=== PATIENT | male | born 1955 | race Caucasian/White ===

== ENCOUNTER 2018-08-19 09:46 | Inpatient (IN) ==
[2018-08-19] MEDS ORDERED: ONDANSETRON 4 MG/2 ML VIAL IV PRN (12:34)
[2018-08-19] MEDS ORDERED: ACETAMINOPHEN 325 MG TABLET PO PRN (12:34)
[2018-08-19] MEDS ORDERED: ALBUTEROL/IPRATROPIUM 3 ML NEB RESP TX STA (12:41)
[2018-08-19] MEDS ORDERED: ALBUTEROL/IPRATROPIUM 3 ML NEB RESP TX ONE ×2 (12:42→14:33)
[2018-08-19] MEDS ORDERED: ALBUTEROL/IPRATROPIUM 3 ML NEB RESP TX SCH (13:00)
[2018-08-19 13:14] LABS: Basophils # 0.1 10*3/uL (0.0-0.2); Basophils % 0.5 % (0.0-0.8); Eosinophils % 0.2 % (0.00-10.9); Hematocrit 53.3 VOL% (42.0-52.0); Immature Granulocytes % 1.3 %; Immature Granulocytes Absolute 0.17 #; Lymphocytes # 1.8 10*3/uL (1.4-4.0); Lymphocytes % 14.1 % (21.2-54.2); Mean Corpuscular HGB Conc 35.6 GM/DL (32-36); Mean Corpuscular Hemoglobin 31 PG (27-34); Mean Corpuscular Volume 87.2 FL (87-102); Mean Platelet Volume 9.3 FL (9.6-12.0); Monocytes # 1.3 10*3/uL (0.11-0.8); Monocytes % 9.7 % (1.7-12.7); Neutrophils # 9.7 10*3/uL (1.4-7.4); Neutrophils % 74.2 % (38.7-73.9); Platelet Count 246 T/CUMM (130-400); Red Blood Count 6.11 MC/CUMM (3.8-5.5); Red Cell Distribution Width 13.4 % (9.3-17.3)
[2018-08-19 13:33] LABS: Risk Ratio 4.29; VLDL CHOLESTEROL 35.8 MG/DL
[2018-08-19] MEDS: guaiFENesin/DM ER 600-30 MG TABLET PO SCH ×2 (13:33→20:54)
[2018-08-19 13:36] LABS: Alanine Aminotransferase 27 U/L (16-61); Albumin 3.5 G/DL (3.4-5.0); Alkaline Phosphatase 51 U/L (45-117); Aspartate Amino Transferase 19 U/L (0-37); Blood Urea Nitrogen 24 MG/DL (7-18); Calcium 8.6 MG/DL (8.5-10.1); Glucose 97 MG/DL (74-106); Osmolality,Calculated 273.1 MOS/KG (273-304); Potassium 2.7 MMOL/L (3.5-5.1); Sodium 135 MMOL/L (136-145); Total Protein 7.5 G/DL (6.4-8.3); Troponin I < 0.015 NG/ML (0.00-0.045)
[2018-08-19 13:54] LABS: ABG Base Excess 4.8 MMOL/L (-2.5-2.5); ABG HCO3 28.5 MMOL/L (20-26); ABG Oxygen Saturation 93.1 % (95-100); ABG PCO2 36.9 MM HG (35-48); ABG PH 7.488 (7.35-7.45); ABG PO2 68.2 MM HG (80-95); ABG TCO2 22.1 MMOL/L (23-27)
[2018-08-19] MEDS ORDERED: methylPREDNISolone SOD SUC 40 MG/1 ML VIAL IV ONE (14:30)
[2018-08-19] MEDS ORDERED: ALBUTEROL/IPRATROPIUM 3 ML NEB RESP TX PRN (14:38)
[2018-08-19] MEDS: ALBUTEROL/IPRATROPIUM 3 ML NEB RESP TX SCH ×3 (14:55→23:46)
[2018-08-19] MEDS: POTASSIUM CHLORIDE 20 MEQ TABLET PO PRN ×4 (15:06→23:14)
[2018-08-19] MEDS: guaiFENesin/CODEINE 5 ML LIQUID PO PRN ×3 (15:07→23:18)
[2018-08-19] MEDS: SODIUM CHLORIDE 0.9% 1,000 ML IV SCH (15:08)
[2018-08-19] MEDS: PIPERACILLIN/TAZOBACTAM 3,375 MG in SODIUM CHLORIDE 0.9% 100 ML IV SCH ×2 (16:16→23:20)
[2018-08-19] MEDS: SIMVASTATIN 20 MG TABLET PO SCH (20:54)
[2018-08-19] MEDS ORDERED: APIXABAN 5 MG TABLET PO SCH (21:00)
[2018-08-19] MEDS: methylPREDNISolone SOD SUC 40 MG/1 ML VIAL IV SCH (23:18)
[2018-08-20] MEDS: ALBUTEROL/IPRATROPIUM 3 ML NEB RESP TX SCH ×6 (04:10→23:07)
[2018-08-20] MEDS: methylPREDNISolone SOD SUC 40 MG/1 ML VIAL IV SCH ×3 (06:48→23:26)
[2018-08-20] MEDS: PIPERACILLIN/TAZOBACTAM 3,375 MG in SODIUM CHLORIDE 0.9% 100 ML IV SCH ×3 (06:49→23:27)
[2018-08-20] MEDS: guaiFENesin/CODEINE 5 ML LIQUID PO PRN ×3 (06:54→21:48)
[2018-08-20 07:13] LABS: Basophils % 0.2 % (0.0-0.8); Hematocrit 51.2 VOL% (42.0-52.0); Hemoglobin 18.2 GM/DL (14.0-18.0); Immature Granulocytes % 1.1 %; Immature Granulocytes Absolute 0.11 #; Lymphocytes # 0.9 10*3/uL (1.4-4.0); Lymphocytes % 8.5 % (21.2-54.2); Mean Corpuscular HGB Conc 35.5 GM/DL (32-36); Mean Corpuscular Hemoglobin 31 PG (27-34); Mean Corpuscular Volume 87.7 FL (87-102); Mean Platelet Volume 9.4 FL (9.6-12.0); Monocytes # 0.2 10*3/uL (0.11-0.8); Monocytes % 1.6 % (1.7-12.7); Neutrophils # 9.2 10*3/uL (1.4-7.4); Neutrophils % 88.6 % (38.7-73.9); Platelet Count 224 T/CUMM (130-400); Red Blood Count 5.84 MC/CUMM (3.8-5.5); Red Cell Distribution Width 13.2 % (9.3-17.3); White Blood Count 10.3 T/CUMM (4-12)
[2018-08-20 07:26] LABS: Calcium 8.5 MG/DL (8.5-10.1); Osmolality,Calculated 280.8 MOS/KG (273-304); Potassium 3.2 MMOL/L (3.5-5.1)
[2018-08-20] MEDS: ASPIRIN EC 81 MG TABLET PO SCH (08:39)
[2018-08-20] MEDS: guaiFENesin/DM ER 600-30 MG TABLET PO SCH (08:39)
[2018-08-20] MEDS: PANTOPRAZOLE 40 MG TABLET PO SCH (08:39)
[2018-08-20] MEDS ORDERED: MEPERIDINE 50 MG/1 ML VIAL IM ONE (09:13)
[2018-08-20] MEDS ORDERED: MIDAZOLAM 2 MG/2 ML VIAL IV ONE (09:13)
[2018-08-20] MEDS ORDERED: diphenhydrAMINE 50 MG/1 ML VIAL IM ONE (09:13)
[2018-08-20] MEDS ORDERED: BENZONATATE 100 MG CAPSULE PO ONE (09:15)
[2018-08-20 09:56] LABS: INR 1.1; PT Patient Result 11.7 SECS; Partial Thromboplastin Time 28.2 SECS (0-40)
[2018-08-20] MEDS ORDERED: LIDOCAINE 2% VISCOUS 100 ML BOTTLE SWISH/SPIT ONE (10:00)
[2018-08-20] MEDS ORDERED: LIDOCAINE 2% 20 ML VIAL RESP TX ONE (10:00)
[2018-08-20] MEDS ORDERED: LIDOCAINE 1% 20 ML VIAL MISC INJ ONE (10:00)
[2018-08-20] MEDS ORDERED: MIDAZOLAM 2 MG/2 ML VIAL ONE (11:50)
[2018-08-20] MEDS: LEVOFLOXACIN INJ 250 MG in PREMIX 1 EACH IV SCH (13:34)
[2018-08-20] MEDS: SODIUM CHLORIDE 0.9% 1,000 ML IV SCH ×3 (13:40→23:24)
[2018-08-20] MEDS: DORNASE ALFA 2.5 MG/2.5 ML VIAL RESP TX SCH (19:49)
[2018-08-20] MEDS: APIXABAN 5 MG TABLET PO SCH (21:47)
[2018-08-20] MEDS: SIMVASTATIN 20 MG TABLET PO SCH (21:47)
[2018-08-21] MEDS: ALBUTEROL/IPRATROPIUM 3 ML NEB RESP TX SCH ×6 (03:52→23:42)
[2018-08-21 05:34] LABS: Basophils % 0.2 % (0.0-0.8); Hematocrit 46.8 VOL% (42.0-52.0); Hemoglobin 16.3 GM/DL (14.0-18.0); Immature Granulocytes % 0.8 %; Immature Granulocytes Absolute 0.13 #; Lymphocytes # 0.8 10*3/uL (1.4-4.0); Lymphocytes % 4.9 % (21.2-54.2); Mean Corpuscular HGB Conc 34.8 GM/DL (32-36); Mean Corpuscular Hemoglobin 31 PG (27-34); Mean Corpuscular Volume 88.6 FL (87-102); Mean Platelet Volume 9.3 FL (9.6-12.0); Monocytes # 0.9 10*3/uL (0.11-0.8); Monocytes % 5.3 % (1.7-12.7); Neutrophils # 14.9 10*3/uL (1.4-7.4); Neutrophils % 88.8 % (38.7-73.9); Platelet Count 209 T/CUMM (130-400); Red Blood Count 5.28 MC/CUMM (3.8-5.5); Red Cell Distribution Width 13.2 % (9.3-17.3); White Blood Count 16.8 T/CUMM (4-12)
[2018-08-21 05:52] LABS: Calcium 8.1 MG/DL (8.5-10.1); Osmolality,Calculated 289.4 MOS/KG (273-304)
[2018-08-21 06:21] LABS: Band Neutrophils 1 % (0-10); Lymphocytes 6 % (20-55); Segmented Neutrophils 91 % (50-85)
[2018-08-21 06:22] LABS: Platelet Estimate Adequate; Total Cells Counted 100
[2018-08-21] MEDS: methylPREDNISolone SOD SUC 40 MG/1 ML VIAL IV SCH ×3 (06:32→22:32)
[2018-08-21] MEDS: PIPERACILLIN/TAZOBACTAM 3,375 MG in SODIUM CHLORIDE 0.9% 100 ML IV SCH ×2 (06:33→16:27)
[2018-08-21] MEDS: DORNASE ALFA 2.5 MG/2.5 ML VIAL RESP TX SCH ×2 (08:24→20:00)
[2018-08-21] MEDS: APIXABAN 5 MG TABLET PO SCH ×2 (08:49→21:06)
[2018-08-21] MEDS: ASPIRIN EC 81 MG TABLET PO SCH (08:49)
[2018-08-21] MEDS: PANTOPRAZOLE 40 MG TABLET PO SCH (08:49)
[2018-08-21] MEDS: LEVOFLOXACIN INJ 250 MG in PREMIX 1 EACH IV SCH (12:21)
[2018-08-21] MEDS: guaiFENesin/CODEINE 5 ML LIQUID PO PRN ×2 (15:43→21:10)
[2018-08-21] MEDS: CARVEDILOL 25 MG TABLET PO SCH (16:28)
[2018-08-21] MEDS: CEFEPIME 1,000 MG in SYRINGE 1 EACH IV SCH (18:31)
[2018-08-21] MEDS: POTASSIUM CHLORIDE 20 MEQ TABLET PO PRN ×3 (19:34→22:33)
[2018-08-21] MEDS: SIMVASTATIN 20 MG TABLET PO SCH (21:06)
[2018-08-22] MEDS: SODIUM CHLORIDE 0.9% 1,000 ML IV SCH (00:45)
[2018-08-22] MEDS: POTASSIUM CHLORIDE 20 MEQ TABLET PO PRN ×3 (00:48→14:30)
[2018-08-22] MEDS: ALBUTEROL/IPRATROPIUM 3 ML NEB RESP TX SCH ×6 (03:45→23:14)
[2018-08-22 04:59] LABS: Basophils % 0.1 % (0.0-0.8); Hematocrit 46.6 VOL% (42.0-52.0); Hemoglobin 15.8 GM/DL (14.0-18.0); Immature Granulocytes Absolute 0.17 #; Lymphocytes # 0.5 10*3/uL (1.4-4.0); Lymphocytes % 3.2 % (21.2-54.2); Mean Corpuscular HGB Conc 33.9 GM/DL (32-36); Mean Corpuscular Hemoglobin 30 PG (27-34); Mean Corpuscular Volume 89.8 FL (87-102); Mean Platelet Volume 9.4 FL (9.6-12.0); Monocytes # 0.6 10*3/uL (0.11-0.8); Monocytes % 3.5 % (1.7-12.7); Neutrophils # 15.1 10*3/uL (1.4-7.4); Neutrophils % 92.2 % (38.7-73.9); Platelet Count 202 T/CUMM (130-400); Red Blood Count 5.19 MC/CUMM (3.8-5.5); Red Cell Distribution Width 13.5 % (9.3-17.3); White Blood Count 16.4 T/CUMM (4-12)
[2018-08-22 05:25] LABS: Osmolality,Calculated 289.4 MOS/KG (273-304); Potassium 3.6 MMOL/L (3.5-5.1)
[2018-08-22] MEDS: methylPREDNISolone SOD SUC 40 MG/1 ML VIAL IV SCH ×3 (06:29→23:58)
[2018-08-22 06:51] LABS: Lymphocytes 4 % (20-55); Segmented Neutrophils 93 % (50-85)
[2018-08-22 06:52] LABS: Platelet Estimate Normal; Reactive Lymphocytes 2+
[2018-08-22 06:53] LABS: Total Cells Counted 100
[2018-08-22] MEDS: DORNASE ALFA 2.5 MG/2.5 ML VIAL RESP TX SCH ×2 (07:47→19:23)
[2018-08-22] MEDS: APIXABAN 5 MG TABLET PO SCH ×2 (09:10→20:51)
[2018-08-22] MEDS: TAMSULOSIN 0.4 MG CAPSULE PO SCH (09:10)
[2018-08-22] MEDS: ASPIRIN EC 81 MG TABLET PO SCH (09:11)
[2018-08-22] MEDS: PANTOPRAZOLE 40 MG TABLET PO SCH (09:11)
[2018-08-22] MEDS: CARVEDILOL 25 MG TABLET PO SCH ×2 (09:11→17:16)
[2018-08-22] MEDS: LEVOFLOXACIN INJ 250 MG in PREMIX 1 EACH IV SCH (11:44)
[2018-08-22] MEDS: guaiFENesin/CODEINE 5 ML LIQUID PO PRN ×2 (14:29→20:52)
[2018-08-22] MEDS: CEFEPIME 1,000 MG in SYRINGE 1 EACH IV SCH (17:32)
[2018-08-22] MEDS: SIMVASTATIN 20 MG TABLET PO SCH (20:51)
[2018-08-23] MEDS: ALBUTEROL/IPRATROPIUM 3 ML NEB RESP TX SCH ×6 (02:08→22:44)
[2018-08-23] MEDS: SODIUM CHLORIDE 0.9% 1,000 ML IV SCH ×3 (05:16→22:41)
[2018-08-23 06:16] LABS: Basophils % 0.1 % (0.0-0.8); Hematocrit 45.2 VOL% (42.0-52.0); Hemoglobin 15.4 GM/DL (14.0-18.0); Immature Granulocytes % 0.8 %; Immature Granulocytes Absolute 0.11 #; Lymphocytes # 0.5 10*3/uL (1.4-4.0); Lymphocytes % 3.6 % (21.2-54.2); Mean Corpuscular HGB Conc 34.1 GM/DL (32-36); Mean Corpuscular Hemoglobin 31 PG (27-34); Mean Corpuscular Volume 90.8 FL (87-102); Mean Platelet Volume 9.4 FL (9.6-12.0); Monocytes # 0.4 10*3/uL (0.11-0.8); Monocytes % 3.3 % (1.7-12.7); Neutrophils # 12.4 10*3/uL (1.4-7.4); Neutrophils % 92.2 % (38.7-73.9); Platelet Count 180 T/CUMM (130-400); Red Blood Count 4.98 MC/CUMM (3.8-5.5); Red Cell Distribution Width 13.7 % (9.3-17.3); White Blood Count 13.4 T/CUMM (4-12)
[2018-08-23 06:34] LABS: Calcium 7.8 MG/DL (8.5-10.1); Osmolality,Calculated 286.3 MOS/KG (273-304); Potassium 3.5 MMOL/L (3.5-5.1)
[2018-08-23] MEDS: methylPREDNISolone SOD SUC 40 MG/1 ML VIAL IV SCH ×3 (06:44→22:29)
[2018-08-23 06:59] LABS: Band Neutrophils 1 % (0-10); Lymphocytes 6 % (20-55); Platelet Estimate Normal; Segmented Neutrophils 92 % (50-85); Total Cells Counted 100
[2018-08-23 07:00] LABS: Anisocytosis Slight
[2018-08-23] MEDS: DORNASE ALFA 2.5 MG/2.5 ML VIAL RESP TX SCH ×2 (07:46→19:32)
[2018-08-23] MEDS: CARVEDILOL 25 MG TABLET PO SCH ×2 (09:03→17:20)
[2018-08-23] MEDS: ASPIRIN EC 81 MG TABLET PO SCH ×2 (09:03→17:21)
[2018-08-23] MEDS: PANTOPRAZOLE 40 MG TABLET PO SCH (09:04)
[2018-08-23] MEDS: APIXABAN 5 MG TABLET PO SCH ×2 (09:04→22:09)
[2018-08-23] MEDS: CEFEPIME 1,000 MG in SYRINGE 1 EACH IV SCH ×2 (09:09→16:31)
[2018-08-23] MEDS: LEVOFLOXACIN INJ 500 MG in PREMIX 1 EACH IV SCH (09:12)
[2018-08-23] MEDS: guaiFENesin/CODEINE 5 ML LIQUID PO PRN ×3 (11:26→22:07)
[2018-08-23] MEDS: ALBUTEROL 2 MG TABLET PO SCH ×2 (17:19→22:08)
[2018-08-23] MEDS: SIMVASTATIN 20 MG TABLET PO SCH (22:09)
[2018-08-23] MEDS: POTASSIUM CHLORIDE 20 MEQ TABLET PO PRN (22:09)
[2018-08-24] MEDS: CEFEPIME 1,000 MG in SYRINGE 1 EACH IV SCH ×3 (01:19→17:22)
[2018-08-24] MEDS: POTASSIUM CHLORIDE 20 MEQ TABLET PO PRN (01:37)
[2018-08-24] MEDS: ALBUTEROL/IPRATROPIUM 3 ML NEB RESP TX SCH ×6 (03:32→23:47)
[2018-08-24 05:36] LABS: Calcium 7.9 MG/DL (8.5-10.1); Osmolality,Calculated 286.4 MOS/KG (273-304)
[2018-08-24 05:45] LABS: Basophils % 0.1 % (0.0-0.8); Hematocrit 48.2 VOL% (42.0-52.0); Hemoglobin 16.2 GM/DL (14.0-18.0); Immature Granulocytes % 1.3 %; Immature Granulocytes Absolute 0.15 #; Lymphocytes # 0.4 10*3/uL (1.4-4.0); Lymphocytes % 3.8 % (21.2-54.2); Mean Corpuscular HGB Conc 33.6 GM/DL (32-36); Mean Corpuscular Hemoglobin 31 PG (27-34); Mean Corpuscular Volume 93.1 FL (87-102); Mean Platelet Volume 9.9 FL (9.6-12.0); Monocytes # 0.3 10*3/uL (0.11-0.8); Monocytes % 2.6 % (1.7-12.7); Neutrophils # 10.4 10*3/uL (1.4-7.4); Neutrophils % 92.2 % (38.7-73.9); Platelet Count 162 T/CUMM (130-400); Red Blood Count 5.18 MC/CUMM (3.8-5.5); Red Cell Distribution Width 13.7 % (9.3-17.3); White Blood Count 11.3 T/CUMM (4-12)
[2018-08-24 06:05] LABS: Hypochromasia Slight; Lymphocytes 4 % (20-55); Platelet Estimate Adequate; Segmented Neutrophils 95 % (50-85); Total Cells Counted 100
[2018-08-24] MEDS: ALBUTEROL 2 MG TABLET PO SCH ×3 (06:36→21:09)
[2018-08-24] MEDS: DORNASE ALFA 2.5 MG/2.5 ML VIAL RESP TX SCH ×2 (07:20→20:03)
[2018-08-24] MEDS: ASPIRIN EC 81 MG TABLET PO SCH (09:58)
[2018-08-24] MEDS: PANTOPRAZOLE 40 MG TABLET PO SCH (09:58)
[2018-08-24] MEDS: APIXABAN 5 MG TABLET PO SCH ×2 (09:58→21:10)
[2018-08-24] MEDS: CARVEDILOL 25 MG TABLET PO SCH ×2 (09:58→17:12)
[2018-08-24] MEDS: LEVOFLOXACIN INJ 500 MG in PREMIX 1 EACH IV SCH (10:01)
[2018-08-24] MEDS ORDERED: EPINEPHrine 1 MG/ML VIAL SUBCUT ONE (10:28)
[2018-08-24] MEDS: SODIUM CHLORIDE 0.9% 1,000 ML IV SCH (12:41)
[2018-08-24] MEDS: methylPREDNISolone SOD SUC 40 MG/1 ML VIAL IV SCH (12:42)
[2018-08-24] MEDS: guaiFENesin/CODEINE 5 ML LIQUID PO PRN (14:22)
[2018-08-24] MEDS: SIMVASTATIN 20 MG TABLET PO SCH (21:10)
[2018-08-25] MEDS: methylPREDNISolone SOD SUC 40 MG/1 ML VIAL IV SCH ×4 (00:02→22:11)
[2018-08-25] MEDS: SODIUM CHLORIDE 0.9% 1,000 ML IV SCH ×4 (00:06→22:10)
[2018-08-25] MEDS: CEFEPIME 1,000 MG in SYRINGE 1 EACH IV SCH ×3 (00:09→17:49)
[2018-08-25] MEDS: MORPHINE 4 MG/1 ML VIAL IV PRN ×2 (02:09→05:48)
[2018-08-25] MEDS: ALBUTEROL/IPRATROPIUM 3 ML NEB RESP TX SCH ×5 (03:20→19:53)
[2018-08-25] MEDS: guaiFENesin/CODEINE 5 ML LIQUID PO PRN ×4 (03:41→17:54)
[2018-08-25 05:27] LABS: Basophils % 0.1 % (0.0-0.8); Hematocrit 45.4 VOL% (42.0-52.0); Hemoglobin 15.4 GM/DL (14.0-18.0); Immature Granulocytes % 0.9 %; Lymphocytes # 0.4 10*3/uL (1.4-4.0); Lymphocytes % 3.3 % (21.2-54.2); Mean Corpuscular HGB Conc 33.9 GM/DL (32-36); Mean Corpuscular Hemoglobin 31 PG (27-34); Mean Corpuscular Volume 92.1 FL (87-102); Mean Platelet Volume 9.2 FL (9.6-12.0); Monocytes # 0.4 10*3/uL (0.11-0.8); Monocytes % 3.5 % (1.7-12.7); Neutrophils # 10.8 10*3/uL (1.4-7.4); Neutrophils % 92.2 % (38.7-73.9); Platelet Count 151 T/CUMM (130-400); Red Blood Count 4.93 MC/CUMM (3.8-5.5); Red Cell Distribution Width 13.7 % (9.3-17.3); White Blood Count 11.7 T/CUMM (4-12)
[2018-08-25] MEDS: ALBUTEROL 2 MG TABLET PO SCH ×3 (05:48→22:11)
[2018-08-25 06:00] LABS: Calcium 7.6 MG/DL (8.5-10.1); Osmolality,Calculated 293.8 MOS/KG (273-304); Potassium 3.7 MMOL/L (3.5-5.1)
[2018-08-25 06:07] LABS: Hypochromasia 1+; Lymphocytes 3 % (20-55); Platelet Estimate Adequate; Segmented Neutrophils 94 % (50-85); Total Cells Counted 100
[2018-08-25] MEDS: DORNASE ALFA 2.5 MG/2.5 ML VIAL RESP TX SCH ×2 (07:32→23:00)
[2018-08-25] MEDS: PANTOPRAZOLE 40 MG TABLET PO SCH (10:19)
[2018-08-25] MEDS: LEVOFLOXACIN INJ 500 MG in PREMIX 1 EACH IV SCH (10:19)
[2018-08-25] MEDS: ASPIRIN EC 81 MG TABLET PO SCH (10:20)
[2018-08-25] MEDS: APIXABAN 5 MG TABLET PO SCH ×2 (10:20→20:45)
[2018-08-25] MEDS: CARVEDILOL 25 MG TABLET PO SCH ×2 (10:20→17:48)
[2018-08-25] MEDS: POTASSIUM CHLORIDE 20 MEQ TABLET PO PRN (10:20)
[2018-08-25] MEDS: TAMSULOSIN 0.4 MG CAPSULE PO SCH (10:20)
[2018-08-25] MEDS: SIMVASTATIN 20 MG TABLET PO SCH (20:45)
[2018-08-26] MEDS: ALBUTEROL/IPRATROPIUM 3 ML NEB RESP TX SCH ×7 (00:19→23:47)
[2018-08-26] MEDS: CEFEPIME 1,000 MG in SYRINGE 1 EACH IV SCH ×3 (01:19→17:33)
[2018-08-26 05:53] LABS: Basophils % 0.2 % (0.0-0.8); Hematocrit 48.3 VOL% (42.0-52.0); Immature Granulocytes % 0.7 %; Immature Granulocytes Absolute 0.08 #; Lymphocytes # 0.4 10*3/uL (1.4-4.0); Lymphocytes % 3.3 % (21.2-54.2); Mean Corpuscular HGB Conc 33.1 GM/DL (32-36); Mean Corpuscular Hemoglobin 31 PG (27-34); Mean Corpuscular Volume 92.9 FL (87-102); Mean Platelet Volume 9.5 FL (9.6-12.0); Monocytes # 0.5 10*3/uL (0.11-0.8); Monocytes % 4.3 % (1.7-12.7); Neutrophils % 91.5 % (38.7-73.9); Platelet Count 156 T/CUMM (130-400); Red Cell Distribution Width 13.8 % (9.3-17.3)
[2018-08-26 05:59] LABS: INR 1.1; PT Patient Result 12.3 SECS; Partial Thromboplastin Time 27.1 SECS (0-40)
[2018-08-26 06:19] LABS: Hypochromasia 1+; Lymphocytes 3 % (20-55); Platelet Estimate Adequate; Segmented Neutrophils 95 % (50-85); Total Cells Counted 100
[2018-08-26] MEDS: ALBUTEROL 2 MG TABLET PO SCH ×3 (07:02→21:18)
[2018-08-26] MEDS: DORNASE ALFA 2.5 MG/2.5 ML VIAL RESP TX SCH ×2 (07:18→19:52)
[2018-08-26] MEDS ORDERED: MEPERIDINE 50 MG/1 ML VIAL IM ONE (08:00)
[2018-08-26] MEDS ORDERED: diphenhydrAMINE 50 MG/1 ML VIAL IM ONE (08:00)
[2018-08-26] MEDS ORDERED: BENZONATATE 100 MG CAPSULE PO ONE (08:00)
[2018-08-26] MEDS ORDERED: LIDOCAINE 1% 20 ML VIAL MISC INJ ONE (08:30)
[2018-08-26] MEDS ORDERED: LIDOCAINE 2% 20 ML VIAL RESP TX ONE (08:30)
[2018-08-26] MEDS ORDERED: LIDOCAINE 2% VISCOUS 100 ML BOTTLE SWISH/SPIT ONE (08:30)
[2018-08-26] MEDS ORDERED: MIDAZOLAM 2 MG/2 ML VIAL IV ONE (09:00)
[2018-08-26] MEDS: LEVOFLOXACIN INJ 500 MG in PREMIX 1 EACH IV SCH (09:56)
[2018-08-26] MEDS: PANTOPRAZOLE 40 MG TABLET PO SCH (09:59)
[2018-08-26] MEDS: ASPIRIN EC 81 MG TABLET PO SCH (09:59)
[2018-08-26] MEDS: CARVEDILOL 25 MG TABLET PO SCH ×2 (09:59→17:33)
[2018-08-26] MEDS: APIXABAN 5 MG TABLET PO SCH ×2 (09:59→21:18)
[2018-08-26] MEDS ORDERED: METOPROLOL TARTRATE 5 MG/5 ML VIAL IV PRN (10:07)
[2018-08-26] MEDS: SODIUM CHLORIDE 0.9% 1,000 ML IV SCH (14:48)
[2018-08-26] MEDS: SIMVASTATIN 20 MG TABLET PO SCH (21:18)
[2018-08-27] MEDS: CEFEPIME 1,000 MG in SYRINGE 1 EACH IV SCH ×2 (01:00→09:14)
[2018-08-27] MEDS: SODIUM CHLORIDE 0.9% 1,000 ML IV SCH (03:08)
[2018-08-27] MEDS: ALBUTEROL/IPRATROPIUM 3 ML NEB RESP TX SCH ×4 (04:43→14:04)
[2018-08-27] MEDS: DORNASE ALFA 2.5 MG/2.5 ML VIAL RESP TX SCH (07:18)
[2018-08-27] MEDS: ALBUTEROL 2 MG TABLET PO SCH (07:54)
[2018-08-27] MEDS: APIXABAN 5 MG TABLET PO SCH (09:02)
[2018-08-27] MEDS: CARVEDILOL 25 MG TABLET PO SCH (09:02)
[2018-08-27] MEDS: PANTOPRAZOLE 40 MG TABLET PO SCH (09:02)
[2018-08-27] MEDS: ASPIRIN EC 81 MG TABLET PO SCH (09:02)
[2018-08-27] MEDS: LEVOFLOXACIN INJ 500 MG in PREMIX 1 EACH IV SCH (09:21)
[2018-08-27 11:48] VITALS: BP 128/88
== END 2018-08-27 14:38 | disposition home or self-care (01) | DRG 202 ==
LOC: N.5E → SUATTDRO 11:49 → N.5E 08-25 15:33
PROVIDERS: ADMIT Internal Medicine; ATTEND Internal Medicine